=== PATIENT | male | born 1980 | race Caucasian/White ===

== ENCOUNTER 2017-07-13 10:02 | Day surgery (SDC) | payer OTHER ==
[2017-07-12 13:00] VITALS: Ht 182.9 cm; Wt 119.3 kg
[~2017-07-13] VITALS: Ht 182.9 cm; Wt 119.3 kg
[~2017-07-13 10:02] MED LIST: CEFAZOLIN 2 GM/50 ML (PMX) 50 ML IVPB SCH; SOD CHLORIDE 0.9% 1,000 ML IV SCH
[2017-07-13] MEDS ORDERED: ARIP300S IM (10:29)
[2017-07-13 11:04] VITALS: BP 115/71; PULSE 75; RESP 18
[2017-07-13] MEDS ORDERED: ONDANSETRON 4 MG INJ IV PRN ×2 (14:00→15:30)
[2017-07-13] MEDS ORDERED: HYDROmorphONE (0.2 MG/ML) 10ML SYG IV PRN ×4 (14:00→15:30)
[2017-07-13] MEDS ORDERED: FENTAnyl 50 MCG/ML VIAL IV PRN ×4 (14:00→15:30)
[2017-07-13] MEDS ORDERED: DIPHENHYDRAMINE 50 MG INJ IV PRN ×2 (14:00→15:30)
[2017-07-13] MEDS ORDERED: METOCLOPRAMIDE 10 MG INJ IV PRN ×2 (14:00→15:30)
[2017-07-13] MEDS ORDERED: BUPIVACAINE 0.25% (MPF) 30 ML INJ ONE (14:22)
[2017-07-13] MEDS ORDERED: FENTAnyl 50 MCG/ML VIAL ONE (14:42)
[2017-07-13] MEDS ORDERED: DEXAMETHASONE 4 MG/ML 1 ML INJ ONE (15:04)
[2017-07-13] MEDS ORDERED: CEFAZOLIN 1 GM INJ ONE (15:05)
[2017-07-13] MEDS ORDERED: PROPOFOL 20 ML ONE (15:05)
[2017-07-13] MEDS ORDERED: SUCCINYLCHOLINE CHLORIDE 100 MG/5 ML SYG IV ONE (15:05)
[2017-07-13] MEDS ORDERED: SUGAMMADEX SODIUM 200 MG/2 ML VIAL IV ONE (15:05)
[2017-07-13] MEDS ORDERED: LIDOCAINE 2% (SDV) 5 ML INJ ONE (15:05)
[2017-07-13] MEDS ORDERED: ROCURONIUM 50 MG INJ ONE (15:05)
[2017-07-13] MEDS ORDERED: ROPIVACAINE 0.5 % 30 ML VIAL ONE (15:24)
[2017-07-13] MEDS ORDERED: MEPERIDINE 25 MG INJ IV PRN (15:30)
[2017-07-13] MEDS ORDERED: HYDROCODONE/APAP (5/325) TAB PO ONE (15:30)
--- NOTE | 2017-07-13 15:33 | OPR ---
Date/Time of Note Date/Time of Note DATE: 07/13/17 TIME: 15:30 Operative Report Procedure Date: Jul 13, 2017 Preoperative Diagnosis symptomatic gallstones Postoperative Diagnosis same Operation/Procedure Performed 1. laparoscopic cholecystectomy 2. therapeutic injection of subcutaneous local anesthesia Surgeon see signature line Book Coverer none Anesthesia Type: general Estimated Blood Loss: 0 - 10 ml's Transfusion none Specimen gallbladder Grafts/Implants none Complications none Pt Condition Post Procedure: stable Indications This is a 36-year-old male with symptomatic gallstones. He requests surgical excision of his gallbladder. Risks alternatives benefits and percent were discussed the patient. Patient expressed understanding consents to the operation. Procedure Description Patient taken to the OR and prepped and draped in usual sterile fashion. Surgical timeout was performed. IV antibiotics were given. Infraumbilical incision is made transversely with a 15 blade. Dissection cautery was carried down to the fascia. The fascia was grasped with [place]'s and divided with curved Brand scissors. 0 Vicryl U stitch was placed into the fascia. balloon cooney trocar is introduced. Pneumoperitoneum is established. Midepigastric 12 mm optical trocar was placed under direct visualization. Right upper quadrant upper flank 5 mm optical trochars were placed under direct visualization. Upon initial inspection there is some adhesions to the gallbladder which were taken down bluntly. The gallbladder was grasped lateral and our direction. The cautery was initially used for dissection laterally to allow mobilization of the gallbladder and visualization of the cystic duct. This critical view is established. The cystic duct is divided using a 35 mm echelon vascular stapler due to thickened tissues. The staple line was reinforced with clips. The cystic artery was divided with 3 clips proximal and clip distal. The gallbladder is taken off the gallbladder bed. There is good hemostasis in the surgical site. The gallbladder is retrieved using Endo Catch bag. Ports removed under direct visualization. 0 Vicryl U stitch was tied down. Skin is closed using skin christian. Therapeutic subcutaneous local anesthesia was injected throughout the incision site. Dry dressings were applied. Leeann GUILLAUME Jul 13, 2017 15:33
[2017-07-13] MEDS: HYDROmorphONE (0.2 MG/ML) 10ML SYG IV PRN ×4 (15:59→16:35)
[2017-07-13 16:55] VITALS: BP 128/68; PULSE 69; RESP 14
--- NOTE | 2017-07-17 10:51 | HP ---
DATE OF ADMISSION: 07/13/2017 INDICATION: This is a 36-year-old male with symptomatic gallstones. He has right upper quadrant pa in after eating, it occurs about 20-30 minutes after eating. He does not have any nausea or vomitin g. He has focal pain in the abdomen. Imaging is consistent with the symptomatic findings. The pat ient is here for a laparoscopic cholecystectomy. PAST MEDICAL HISTORY: None. PAST SURGICAL HISTORY: None. ALLERGIES: NO KNOWN DRUG ALLERGIES. SOCIAL HISTORY: Denies any tobacco or alcohol use. PHYSICAL EXAMINATION: VITAL SIGNS: Temperature 97.6, pulse is 69, respiratory rate is 14, blood pressure is 128/68. GENERAL: In no acute distress. CARDIOVASCULAR: Regular rate and rhythm. RESPIRATORY: Clear to auscultation. ABDOMEN: Focal right upper quadrant tenderness. No peritoneal signs, no rebound tenderness. EXTREMITIES: Warm, no cyanosis. NEUROLOGIC: Grossly intact. ASSESSMENT AND PLAN: This is a 36-year-old male with symptomatic gallstones. He is here for a lapa roscopic cholecystectomy, possible open. Dictated By: TERRELL STOKES/JUWAN Conf#: [id number] DID#: [id number]
== END 2017-07-13 17:40 | disposition home or self-care (01) ==
LOC: SDS 10:02
PROVIDERS: ATTEND Surgery
DX: K80.10 Calculus of gallbladder with chronic cholecystitis without obstruction (principal); I10 Essential (primary) hypertension; E11.9 Type 2 diabetes mellitus without complications
CPT/HCPCS: 47562; 82962; 88304; J0690; J1170; J2175; J2405; J2795; J3010; Z7512; Z7610; J1100

== ENCOUNTER 2017-07-21 16:00 | Emergency (ER) | payer OTHER ==
[~2017-07-21] VITALS: Wt 119.7 kg
[~2017-07-21 16:00] MED LIST changes: +ARIP300S IM; -CEFAZOLIN 2 GM/50 ML (PMX) 50 ML IVPB SCH; -SOD CHLORIDE 0.9% 1,000 ML IV SCH
[2017-07-21] MEDS ORDERED: HYDROmorphONE 0.5 MG/0.5 ML SYG IV STA (20:01)
[2017-07-21] MEDS ORDERED: ONDANSETRON 4 MG INJ IV STA (20:01)
[2017-07-21] MEDS ORDERED: SOD CHLORIDE 0.9% 1,000 ML IV STA (20:01)
[2017-07-21 20:27] LABS: BASOPHIL # 0.1 10^3/ul (0.0-0.1); BASOPHILS % 0.7 % (0.0-2.0); EOSINOPHILS # 0.8 10^3/ul (0.0-0.5); EOSINOPHILS % 8.9 % (0.0-7.0); HEMATOCRIT 39.8 % (42.0-52.0); HEMOGLOBIN 13.2 g/dl (14.0-18.0); LYMPHOCYTES # 2.1 10^3/ul (0.8-2.9); LYMPHOCYTES % 23.3 % (15.0-51.0); MEAN CORPUSCULAR HGB CONC 33.2 g/dl (32.0-37.0); MEAN CORPUSCULAR VOLUME 90.5 fl (82.0-101.0); MEAN PLATELET VOLUME 10.5 fl (7.4-10.4); MONOCYTE # 0.6 10^3/ul (0.3-0.9); MONOCYTES % 7.1 % (0.0-11.0); NEUTROPHIL # 5.3 10^3/ul (1.6-7.5); NEUTROPHILS % 59.4 % (39.0-77.0); PLATELET COUNT 256 10^3/UL (140-415); RED CELL DISTRIBUTION WIDTH 13.3 % (11.5-14.5); WHITE BLOOD COUNT 8.9 10^3/ul (4.8-10.8)
[2017-07-21 20:48] LABS: ALBUMIN 3.7 g/dl (3.3-4.9); ALBUMIN/GLOBULIN RATIO 1.12; BILIRUBIN,INDIRECT 0.1 mg/dl (0-1.1); BILIRUBIN,TOTAL 0.1 mg/dl (0.2-1.3); CALCIUM 8.5 mg/dl (8.4-10.2); CREATININE 0.89 mg/dl (0.61-1.24); POTASSIUM 3.9 mmol/L (3.5-5.1)
--- NOTE | 2017-07-21 21:18 | RADRPT ---
PROCEDURE: CT abdomen and pelvis without contrast. CLINICAL INDICATION: Right flank pain TECHNIQUE: CT scan of the abdomen and pelvis without contrast was performed and is reconstructed a t 5 mm contiguous axial intervals from the dome of the diaphragm to the inferior pubic rami.. The p atient was scanned without intravenous contrast. Sagittal and coronal reformatted images were obtai paul from the axial source images. The calculated radiation dose measures V7 mGy centimeters. The CTD I measures 28 mGy. Individualized dose optimization technique was used for the performance of this exam. This included 1. Automated exposure control. 2. Adjustment of the mA and / or kV according to the patient's size. 3. Use of iterative reconstructed technique. COMPARISON: None. FINDINGS: The lung bases are clear of any infiltrate or nodule. No effusion is seen. There is linear fibrosis or plate-like atelectasis at the lung bases. The liver is enlarged measuring 3 cm. There is fatty infiltration. There is no mass or ductal dilata tion. Gallbladder has been removed. There is minimal streaky of the fat in the gallbladder fossa col lection or, hepatic duct and common bile duct are of normal course and caliber Kidneys are of normal size and contour. No hydronephrosis, calculus or masses seen. Ureters are o f normal course and caliber with no stone. No bladder mass or stone is present. There is no aneurysm. No adenopathy is present. No bowel mass or obstruction is present. The appendix has been removed. No pneumoperitoneum is v isualized. There is trace pelvic ascites. No intraperitoneal or retroperitoneal abscess is present. The osseous structures are intact. Surgical christian are seen surrounding the umbilicus compatible with recent surgery. There is Infiltr ation of the subjacent subcutaneous fat. IMPRESSION: Status post recent cholecystectomy with presumed postsurgical changes gallbladder fossa and the ante rior abdominal wall. No discrete abscess or hematoma. Anterior abdominal wall cellulitis cannot be r uled out. Clinical correlation suggested. Enlarged fatty liver. Bibasilar plate-like atelectasis or fibrosis. .Delio Ledesma MD, MD Date Time Electronically viewed and signed by .Delio Ledesma MDMD on 07/21/2017 21:17 .Manan
[2017-07-21] MEDS ORDERED: KETOROLAC 30 MG INJ IV ONE (21:41)
[2017-07-21] MEDS ORDERED: HYDROmorphONE 0.5 MG/0.5 ML SYG IV ONE (21:41)
[2017-07-22] MEDS ORDERED: FLU45SYR IM (00:11)
[2017-07-22] MEDS ORDERED: MECL-77 PO (00:11)
[2017-07-22] MEDS ORDERED: DIPH25TA27 PO (00:16)
[2017-07-22] MEDS ORDERED: NAPR-688 PO (00:52)
[2017-07-22] MEDS ORDERED: ONDA4TAB11 PO (00:52)
[2017-07-22] MEDS ORDERED: OXYC-279 PO (00:52)
--- NOTE | 2017-07-22 01:00 | ERD ---
ER Documentation Chief Complaint Chief Complaint ABD PAIN S/P [facility] 1 WEEK AGO HPI This 36-year-old male presents for right lateral side pain a week after his cholecystectomy. States he does not have any pain medication at home anymore that is controlling the pain. Surgery was performed at this facility. The pain is a sharp pain does not radiate. It is been present since that time. He has had some nausea with it. ROS All systems reviewed and are negative except as per history of present illness. Medications Home Meds Active Scripts Ondansetron (Zofran Odt) 4 Mg Tab.rapdis, 4 MG PO Q6, #10 Prov:ROLANDO STEPHEN DO 07/22/17 Naproxen* (Naproxen*) 500 Mg Tablet, 500 MG PO BID Y for PAIN, #23 TAB Prov:ROLANDO STEPHEN DO 07/22/17 Oxycodone HCl/Acetaminophen (Percocet 5-325 mg Tablet) 1 Each Tablet, 1 EACH PO Q6 for SEVERE PAIN LEVEL 7-10, #17 TAB Prov:HAILEEROLANDO DO 07/22/17 Reported Medications Diphenhydramine Hcl (Banophen) 25 Mg Tablet, 25 MG PO, TAB 07/22/17 Flu Vaccin [id number] 5Yr Up/Pf (Afluria 5422-6056 Syringe) 45 Mcg/0.5 Ml Syringe , 45 MCG IM 07/22/17 Meclizine Hcl* (Meclizine Hcl*) 25 Mg Tablet, 25 MG PO Q8H Y for DIZZINESS, TAB 07/22/17 Aripiprazole* (Abilify* Maintena) 300 Mg Suser.vial, 300 MG IM Q28D, VIAL 07/13/17 Allergies Allergies: Coded Allergies: shellfish derived (Verified Allergy, Severe, anaphylactic, 07/13/17) Pork/Porcine Containing Products (Verified Allergy, Unknown, itchy rash, 07/13/17) aspirin (Verified Allergy, Unknown, 07/13/17) morphine (Verified Allergy, Unknown, 07/13/17) pineapple (Verified Allergy, Unknown, itchy rash, 07/13/17) PMhx/Soc History of Surgery: Yes (APPENDECTOMY) Anesthesia Reaction: No Hx Neurological Disorder: No Hx Respiratory Disorders: No Hx Cardiac Disorders: No Hx Psychiatric Problems: No Hx Alcohol Use: No Hx Substance Use: No Hx Tobacco Use: Yes (5p-10 cigarette daily) Smoking Status: Current every day smoker Physical Exam Vitals Vital Signs Date Time Temp Pulse Resp B/P Pulse Ox O2 Delivery O2 Flow Rate FiO2 07/21/17 16:03 97.3 89 17 131/79 100 Physical Exam Const: [] Mild distress, appears uncomfortable Head: Atraumatic Eyes: Normal Conjunctiva ENT: Normal External Ears, Nose and Mouth. Neck: Full range of motion..~ No meningismus. Abd: Soft, very mild right upper quadrant tenderness without guarding or rebound, non distended. Normal bowel sounds. Well-healing surgical cyst laparoscopic trocar scars with christian in place very slight erythema no signs of infection. Clean dry and intact Skin: No petechiae or rashes Back: No midline or flank tenderness Ext: No cyanosis, or edema Neur: Awake and alert oriented 3, no focal deficits Psych: Normal Mood and Affect Result Diagram: 07/21/17201507/21/172015 Results 24 hrs Laboratory Tests Test 07/21/17 20:16 White Blood Count 8.910^3/ul Red Blood Count 4.4010^6/ul Hemoglobin 13.2g/dl Hematocrit 39.8% Mean Corpuscular Volume 90.5fl Mean Corpuscular Hemoglobin 30.0pg Mean Corpuscular Hemoglobin Concent 33.2g/dl Red Cell Distribution Width 13.3% Platelet Count 98302^3/UL Mean Platelet Volume 10.5fl Neutrophils % 59.4% Lymphocytes % 23.3% Monocytes % 7.1% Eosinophils % 8.9% Basophils % 0.7% Nucleated Red Blood Cells % 0.0/100WBC Neutrophils # 5.310^3/ul Lymphocytes # 2.110^3/ul Monocytes # 0.610^3/ul Eosinophils # 0.810^3/ul Basophils # 0.110^3/ul Nucleated Red Blood Cells # 0.010^3/ul Sodium Level 142mmol/L Potassium Level 3.9mmol/L Chloride Level 101mmol/L Carbon Dioxide Level 32mmol/L Anion Gap 13 Blood Urea Nitrogen 16mg/dl Creatinine 0.89mg/dl Glucose Level 101mg/dl Calcium Level 8.5mg/dl Total Bilirubin 0.1mg/dl Direct Bilirubin 0.00mg/dl Indirect Bilirubin 0.1mg/dl Aspartate Amino Transf (AST/SGOT) 29IU/L Alanine Aminotransferase (ALT/SGPT) 57IU/L Alkaline Phosphatase 89IU/L Total Protein 7.0g/dl Albumin 3.7g/dl Globulin 3.30g/dl Albumin/Globulin Ratio 1.12 Lipase 45U/L Current Medications Medications (Trade) Dose Ordered Sig/Aaron Route PRN Reason Start Time Stop Time Status Last Admin Dose Admin Sodium Chloride (NS) 1,000 ml @ 1,000 mls/hr Q1H STAT IV 07/21/17 20:01 07/21/17 21:00 DC 07/21/17 20:40 Ondansetron HCl (Zofran Inj) 4 mg ONCE STAT IV 07/21/17 20:01 07/21/17 20:04 DC 07/21/17 20:40 Hydromorphone HCl (Dilaudid) 0.5 mg ONCE STAT IV 07/21/17 20:01 07/21/17 20:04 DC 07/21/17 20:40 Ketorolac Tromethamine (Toradol) 30 mg ONCE ONCE IV 07/21/17 21:41 07/21/17 21:42 DC 07/21/17 21:48 Hydromorphone HCl (Dilaudid) 0.5 mg ONCE ONCE IV 07/21/17 21:41 07/21/17 21:42 DC 07/21/17 21:49 Procedures/MDM Postop abdominal pain which may be secondary to the patient's fatty liver this best fits his pain pattern could just be postop changes. No signs of acute infection or abscess. No elevated white blood cell count. Pain is usually controlled ER with 0.5 mg of Dilaudid at a time because he is allergic to morphine. Also given Toradol normal saline and Zofran. He has an appoint with his surgeon on Monday. I am going to have him follow-up with his appointment and to discharge with pain medication to control any pain that he might have. We will discharge him a few Percocets as well as naproxen and Zofran. From pelvis interpretation: I see no acute process. Normal postop changes, no abscess, no abnormal fluid collection, no intestinal obstruction, no free air. No fractures Departure Diagnosis: Primary Impression: Abdominal pain Condition: Stable Patient Instructions: Abdominal Pain Additional Instructions: Call your primary care doctor [facility] for an appointment during the next 2-3 days.See the doctor sooner or return here if your condition worsens before your appointment time. ROLANDO STEPHEN DO Jul 22, 2017 01:00
[2017-07-22 01:01] VITALS: BP 137/80; PULSE 78; RESP 18; TEMP 98.4
[2017-07-22 01:28] LABS: ADD UMIC YES; UR ASCORBIC ACID 40 mg/dL (NEGATIVE); UR BILIRUBIN (Dip) NEGATIVE (NEGATIVE); UR BLOOD (Dip) NEGATIVE (NEGATIVE); UR CLARITY CLEAR (CLEAR); UR COLOR AMBER (YELLOW); UR GLUCOSE (Dip) NEGATIVE (NEGATIVE); UR KETONES (Dip) NEGATIVE (NEGATIVE); UR LEUKOCYTE ESTERASE (Dip) NEGATIVE Leu/ul (NEGATIVE); UR MUCUS MANY /HPF (NONE SEEN); UR NITRITE (Dip) NEGATIVE (NEGATIVE); UR RBC 0 /HPF (0-5); UR SPECIFIC GRAVITY (Dip) 1.036 (1.003-1.030); UR SQUAMOUS EPITHELIAL CELL FEW /HPF (FEW); UR TOTAL PROTEIN (Dip) 1+ mg/dl (NEGATIVE); UR UROBILINOGEN (Dip) 2+ mg/dL (NEGATIVE)
== END 2017-07-22 01:04 | disposition home or self-care (01) ==
LOC: E/R 16:00
DX: R10.11 Right upper quadrant pain (principal); R40.2252 Coma scale, best verbal response, oriented, at arrival to emergency department; F17.210 Nicotine dependence, cigarettes, uncomplicated; R40.2142 Coma scale, eyes open, spontaneous, at arrival to emergency department; R40.2362 Coma scale, best motor response, obeys commands, at arrival to emergency department
CPT/HCPCS: 36415; 74176; 80053; 81001; 83690; 85025; 96374; 96375; 96376; J1170; J1885; J2405; J7030; Z7502